=== PATIENT | female | born 1985 | race African-American/Black ===

== ENCOUNTER 2019-01-14 11:15 | Day surgery (SDC) | payer OTHER ==
[~2019-01-14] VITALS: Ht 170.2 cm; Wt 100.3 kg
[2019-01-14] VITALS (9 sets, daily range): BP systolic 100–126; BP diastolic 59–89; PULSE 54–80; RESP 9–25; Ht 170.2 cm; Wt 100.3 kg
[~2019-01-14 11:15] MED LIST: HYDR-4011 PO
--- NOTE | 2019-01-14 11:44 | HPN ---
Date/Time of Note Date/Time of Note DATE: 01/14/19 TIME: 11:44 Interval H&P Admission Note Pt. seen H&P reviewed: No system changes BELKYS NERI MD Jan 14, 2019 11:44
[2019-01-14] MEDS ORDERED: SOD CHLORIDE 0.9% 1,000 ML IV SCH (12:00)
[2019-01-14] MEDS ORDERED: CEFAZOLIN 1 GM/50 ML (PMX) 50 ML IVPB ONE ×2 (12:00→13:23)
[2019-01-14] MEDS ORDERED: POLYMYXIN/BACITRACIN 1L IRRIG IRR ONE (12:00)
[2019-01-14] MEDS ORDERED: LIDOCAINE 1%/EPI (1:100,000) (MDV) 20 ML ONE (12:47)
[2019-01-14] MEDS ORDERED: HEPARIN 1000 UNITS/ML 10 ML INJ ONE (12:47)
[2019-01-14] MEDS ORDERED: FENTAnyl 50 MCG/ML VIAL ONE ×2 (13:23→14:13)
[2019-01-14] MEDS ORDERED: MIDAZOLAM 1 MG/ML 2 ML INJ ONE (13:23)
[2019-01-14] MEDS ORDERED: HYDROCODONE/APAP (5/325) TAB PO PRN (15:00)
[2019-01-14] MEDS ORDERED: ONDANSETRON 4 MG INJ IV STA (15:27)
== END 2019-01-14 17:20 | disposition home or self-care (01) ==
LOC: SDS 11:15
PROVIDERS: ATTEND Internal Medicine Hematology & Oncology
DX: C50.912 Malignant neoplasm of unspecified site of left female breast (principal)
CPT/HCPCS: 36561; 76942; C1788; J0690; J1644; J2250; J2405; J3010